=== PATIENT | female | born 1955 | race Caucasian/White ===

== ENCOUNTER 2017-04-23 04:49 | Emergency (ER) | payer OTHER ==
[~2017-04-23] VITALS: Ht 154.9 cm; Wt 65.0 kg
[2017-04-23 04:58] VITALS: Ht 154.9 cm; Wt 65.0 kg
--- NOTE | 2017-04-23 05:20 | ERD ---
ER Documentation Chief Complaint Date/Time DATE: 04/23/17 TIME: 05:19 Chief Complaint INSECT IN LEFT EAR NOTICED AT 4 AM HPI 61-year-old female presents here in emergency department for complaints of an insect in the left ear, felt an insect when inside the left ear. Patient is complaining of pain sharp pain 4/10 scale, worse upon movement of the insect inside the ear. Patient denies any ear discharge. Patient did not have any trauma there. ROS All systems reviewed and are negative except as per history of present illness. Medications Home Meds Reported Medications [none] Unknown Strength No Conflict Check 04/23/17 Allergies Allergies: Coded Allergies: No Known Allergy (Unverified , 04/23/17) PMhx/Soc Medical and Surgical Hx: pt denies Medical Hx, pt denies Surgical Hx FmHx Family History: No coronary disease, No diabetes, No other Physical Exam Vitals Vital Signs Date Time Temp Pulse Resp B/P Pulse Ox O2 Delivery O2 Flow Rate FiO2 04/23/17 04:58 96.8 72 18 178/84 98 Physical Exam GENERAL: The patient is well developed and appropriate for usual state of health, in no apparent distress. HEENT: Atraumatic. Ears: Patient's left ear canal noted to have an insect. Normal tympanic membrane, no erythema or bulging. No right ear canal swelling. No ear discharge. Nose: normal nasal turbinates, no erythema or swelling. Normal nasal discharge. Throat: oropharynx clear. No tonsillar swelling or tonsillar exudates. No lymphadenopathy. CHEST: Clear to auscultation bilaterally. There are no rales, wheezes or rhonchi. HEART: Regular rate and rhythm. No murmurs, clicks, rubs or gallops. No S3 or S4. ABDOMEN: Soft, nontender and nondistended. Good bowel sounds. No rebound or guarding. No gross peritonitis. No gross organomegaly or masses. No Bender sign or McBurney point tenderness. BACK: No midline or flank tenderness. EXTREMITIES: Equal pulses bilaterally. There is no peripheral clubbing, cyanosis or edema. No focal swelling or erythema. Full range of motion. Grossly neurovascularly intact. NEURO: Alert and oriented. Cranial nerves 2-12 intact. Motor strength in all 4 extremities with 5/5 strength. Sensation grossly intact. Normal speech and gait. SKIN: There is no apparent rash or petechia. The skin is warm and dry. HEMATOLOGIC AND LYMPHATIC: There is no evidence of excessive bruising or lymphedema. No gross cervical, axillary, or inguinal lymphadenopathy. Results 24 hrs Current Medications Medications (Trade) Dose Ordered Sig/Sal Route PRN Reason Start Time Stop Time Status Last Admin Dose Admin Lidocaine (Xylocaine (Viscous)) 15 ml ONCE ONCE PO 04/23/17 05:30 04/23/17 05:31 DC Procedures/MDM Procedure note: After patient's verbal consent, the left ear canal is lavage using eluted hydrogen peroxide with normal saline. After procedure, patient left ear was cleaned, insect still noted in the ear, unable to remove. Patient tolerated procedure well. No TM perforation noted. No cerumen impaction noted afterwards. Medical decision making: Patient has an infiltrate on the left ear, no other foreign body noted. TM is no perforated, no symptoms of otitis media or otitis externa.. Ear lavage was done, after multiple attempts, unable to move the insect completely, patient was given referral to ENT outpatient, was given antibiotics to prevent infection of affected area. No symptoms of sepsis at this time. Patient appears well and is hemodynamically stable. No symptoms of mastoiditis. Rx: Corticosporin Otic Drops, Ibuprofen Departure Diagnosis: Primary Impression: Foreign body in left ear Encounter type: initial encounter Qualified Code: T16.2XXA - Foreign body in left ear, initial encounter Condition: Stable Patient Instructions: Foreign Body, Ear Canal (Removed) DWAINE DIXON NP Apr 23, 2017 05:20
[2017-04-23] MEDS ORDERED: LIDOCAINE 2% VISC 15 ML CUP PO ONE (05:30)
[2017-04-23] MEDS ORDERED: IBUP-1542 PO (06:01)
[2017-04-23] MEDS ORDERED: NPH10OT LEFT EAR (06:01)
== END 2017-04-23 06:19 | disposition home or self-care (01) ==
LOC: FTE 04:49
DX: T16.2XXA Foreign body in left ear, initial encounter (principal); X58.XXXA Exposure to other specified factors, initial encounter; Y92.9 Unspecified place or not applicable
CPT/HCPCS: Z7502; Z7610; 99283